=== PATIENT | female | born 1945 | race Two or more races ===

== ENCOUNTER 2020-05-24 18:03 | Inpatient (IN) | payer MEDICARE, MEDICAID ==
[~2020-05-24] VITALS: Ht 160 cm; Wt 95.6 kg
[2020-05-24] MEDS ORDERED: ACETAMINOPHEN 325 MG TAB PO ONE (18:30)
[2020-05-24] MEDS ORDERED: SODIUM CHLORIDE 0.9% 1,000 ML IV ONE (19:30)
[2020-05-24 21:37] LABS: Basophils # (auto) 0 10 ^3/uL (0-0.2); Eosinophils # (auto) 0 10 ^3/uL (0-0.8); Hemoglobin 10.8 g/dL (12.2-16.2); Lymphocytes # (auto) 1.4 10 ^3/uL (0.4-5.4); Red Cell Distribution Width 16.3 % (11.8-14.3)
[2020-05-24 21:39] LABS: Basophils % (auto) 0.2 % (0.0-2.0); Eosinophils % (auto) 0.2 % (0.0-7.0); Hematocrit 33.7 % (36.0-46.0); Lymphocytes % (auto) 9.8 % (10.0-50.0); Mean Corpuscular Hemoglobin 26.2 pg (28.0-32.0); Mean Corpuscular Hgb Conc. 32.1 g/dL (32.0-36.0); Mean Corpuscular Volume 81.8 fL (80.0-100.0); Monocytes # (auto) 0.6 10 ^3/uL (0-1.3); Monocytes % (auto) 4.6 % (0.0-12.0); Neutrophils # (auto) 11.8 10 ^3/uL (1.6-8.6); Neutrophils % (auto) 85.2 % (37.0-80.0); Platelet Count (auto) 175 10^3/uL (140-450); Red Blood Cells 4.12 10^6/uL (4.0-5.20); White Blood Cell 13.9 10^3/uL (4.4-10.8)
[2020-05-24 21:50] LABS: Alanine Aminotransferase 34 U/L (13-56); Albumin 2.8 g/dL (3.4-5.0); Anion Gap 9 (5-15); Aspartate Aminotransferase 28 U/L (15-37); BUN/Creatinine Ratio 17.3; Blood Urea Nitrogen 26 mg/dL (7-18); Calcium 7.8 mg/dL (8.5-10.1); Carbon Dioxide 21 mmol/L (21-32); Chloride 107 mmol/L (98-107); GFR African American 44 mL/min; GFR Non-African American 36 mL/min; Glucose 80 mg/dL (74-106); Potassium 3.6 mmol/L (3.5-5.1); Sodium 137 mmol/L (136-145)
[2020-05-24 21:55] LABS: Alkaline Phosphatase 89 U/L (45-117); Bilirubin, Total 0.4 mg/dL (0.2-1.0); Lactic Acid w/Reflex 4.4 mmol/L (0.4-2.0); Total Protein 6.9 g/dL (6.4-8.2)
[2020-05-24] MEDS: NOREPINEPHRINE 8 MG/250ML KIT 250 ML IV SCH (22:00)
[2020-05-24] MEDS ORDERED: NOREPINEPHRINE 8 MG/250ML KIT 250 ML IV ONE (22:02)
[2020-05-24] MEDS ORDERED: ETOMIDATE (2MG/ML) 20ML VIAL IV ONE ×2 (22:10→22:15)
[2020-05-24] MEDS ORDERED: SUCCINYLCHOLINE CHLORIDE 20 MG/ML 10ML VIAL IV ONE ×2 (22:10→22:15)
[2020-05-24 22:25] LABS: Urine Bacteria MOD /hpf (None Seen); Urine Blood 1+ /uL (Negative); Urine Specific Gravity 1.017 (1.001-1.035); Urine WBC 443 /hpf (0 - 5); Urine WBC Clumps PRESENT /hpf (None Seen)
[2020-05-24] MEDS ORDERED: ONDANSETRON HCL 4 MG/2 ML VIAL IV PRN (22:45)
[2020-05-24] MEDS ORDERED: DOCUSATE SOD 100 MG CAP PO PRN (22:45)
[2020-05-24] MEDS ORDERED: levoFLOXacin 750MG 150 ML IV ONE (23:00)
[2020-05-25] MEDS ORDERED: IPRATROPIUM BROM 0.5 MG/2.5ML INH SOL NEB PRN (02:15)
[2020-05-25] MEDS ORDERED: ALBUTEROL SULF 2.5 MG/0.5ML(0.5%) NEB SOLN NEB PRN (02:15)
[2020-05-25 03:06] VITALS: BP 144/60
[2020-05-25 05:33] LABS: Basophils # (auto) 0.1 10 ^3/uL (0-0.2); Basophils % (auto) 0.3 % (0.0-2.0); Eosinophils # (auto) 0 10 ^3/uL (0-0.8); Hematocrit 35.2 % (36.0-46.0); Lymphocytes # (auto) 2.3 10 ^3/uL (0.4-5.4); Lymphocytes % (auto) 10.6 % (10.0-50.0); Mean Corpuscular Hemoglobin 25.4 pg (28.0-32.0); Mean Corpuscular Hgb Conc. 31.1 g/dL (32.0-36.0); Mean Corpuscular Volume 81.5 fL (80.0-100.0); Monocytes # (auto) 0.9 10 ^3/uL (0-1.3); Neutrophils # (auto) 18.6 10 ^3/uL (1.6-8.6); Neutrophils % (auto) 85.1 % (37.0-80.0); Platelet Count (auto) 199 10^3/uL (140-450); Red Blood Cells 4.32 10^6/uL (4.0-5.20); Red Cell Distribution Width 16.7 % (11.8-14.3); White Blood Cell 21.8 10^3/uL (4.4-10.8)
[2020-05-25 05:58] LABS: Potassium 4.8 mmol/L (3.5-5.1)
[2020-05-25] MEDS ORDERED: ALBUTEROL SULF HFA 90MCG INH 200DOSE IN SCH (06:00)
[2020-05-25 06:04] LABS: Albumin 2.8 g/dL (3.4-5.0); BUN/Creatinine Ratio 21.7; Bilirubin, Total 0.5 mg/dL (0.2-1.0); Calcium 8.2 mg/dL (8.5-10.1); Magnesium 2.3 mg/dL (1.6-2.6); Total Protein 7.3 g/dL (6.4-8.2)
--- NOTE | 2020-05-25 07:00 | NUR ---
Respiratory note: PT ASSESSED FOR PRN TX. HR 72, RR 13, POX 97% ON RA, BS ARE CLEAR. NO SOB OR DISTRESS NOTED.
[2020-05-25] MEDS ORDERED: CHOLECALCIFEROL (VITD3) 1,000UNIT=25mCg TAB PO SCH (10:00)
[2020-05-25] MEDS ORDERED: DOXYCYCLINE 100 MG TAB/CAP PO SCH (10:00)
[2020-05-25] MEDS ORDERED: ENOXAPARIN SOD 40 MG/0.4 ML SYRINGE SC SCH (10:00)
[2020-05-25] MEDS ORDERED: ZINC SULFATE 220mg CAP or TAB PO SCH (10:00)
[2020-05-25] MEDS ORDERED: ASCORBIC ACID 1,000 MG TAB PO SCH (10:00)
[2020-05-25] MEDS ORDERED: VANCOMYCIN PER PHARMACY 0 MG IV SCH (10:15)
[2020-05-25] MEDS ORDERED: ASCORBIC ACID 1,000 MG TAB PO ONE (11:00)
[2020-05-25] MEDS ORDERED: CHOLECALCIFEROL (VITD3) 1,000UNIT=25mCg TAB PO ONE (11:00)
[2020-05-25] MEDS ORDERED: DOXYCYCLINE 100 MG TAB/CAP PO ONE (11:00)
[2020-05-25] MEDS ORDERED: ENOXAPARIN SOD 40 MG/0.4 ML SYRINGE SC ONE (11:00)
[2020-05-25] MEDS ORDERED: ZINC SULFATE 220mg CAP or TAB PO ONE (11:00)
[2020-05-25] MEDS: SODIUM CHLORIDE 0.9% 1,000 ML IV SCH ×2 (11:05→18:46)
[2020-05-25] MEDS: PIPERACILLIN-TAZOB 3.375GM 100 ML IV SCH ×2 (12:10→18:22)
[2020-05-25] MEDS ORDERED: VANCOMYCIN 1GM/250ML 250 ML IV SCH (15:00)
[2020-05-25] MEDS ORDERED: DEXTROSE (50%) 50ML SYRG IV PRN (15:15)
[2020-05-25] MEDS: InsuLIN REG 1unit/0.01ml Soln (100units/ml) SC SCH ×2 (17:10→22:04)
[2020-05-25] MEDS: ACCU-CHEK COMFORT CURVE STRIP VI SCH ×2 (17:13→22:05)
[2020-05-25 17:22] LABS: Lactic Acid w/Reflex 2.3 mmol/L (0.4-2.0)
[2020-05-25] MEDS: ACETAMINOPHEN 500 MG TAB PO PRN (20:52)
[2020-05-25] MEDS ORDERED: DULO20CA PO (21:49)
[2020-05-25] MEDS ORDERED: GABA300C10 PO (21:49)
[2020-05-25] MEDS ORDERED: COLC0.6T56 GT (21:49)
[2020-05-25] MEDS ORDERED: LEV100T GT (21:49)
[2020-05-25] MEDS: NOREPINEPHRINE 8 MG/250ML KIT 250 ML IV SCH (22:00)
[2020-05-25] MEDS: DOXYCYCLINE 100 MG TAB/CAP PO SCH (22:05)
--- NOTE | 2020-05-25 23:51 | NUR ---
Respiratory note: PT SEEN AND ASSESSED FOR PRN MED NEB TX AT 2351. TREATMENT IS NOT INDICATED AT THIS TIME. PT DENIES HAVING ANY SOB. HR 72 RR 18 SP02 98% ON 2L NASAL CANNULA.
[2020-05-26] VITALS (7 sets, daily range): BP systolic 101–160; BP diastolic 49–79
[2020-05-26] MEDS: PIPERACILLIN-TAZOB 3.375GM 100 ML IV SCH ×4 (00:27→18:39)
--- NOTE | 2020-05-26 01:20 | NUR ---
Telemetry admit from [facility] admitted to Telemetry unit after SBAR received. Patient oriented to [facility], RN primary RN, unit, room, bed, and unit policies regarding patient care and visiting hours. Patient now on continuous telemetry monitoring, tele box # [id number] and telemetry reading on arrival to unit is [id number]. Patient placed on bedside oxygen, weighed by bedscale and encouraged to call if they need something. All questions and concerns addressed, patient verbalized understanding.
--- NOTE | 2020-05-26 01:23 | NUR ---
Home Medications Patient does not know her home medication names or doses, patient said she will tell family member to bring medications from home.
[2020-05-26] MEDS: HYDROcodone-ACET 5/325MG TAB PO PRN (01:57)
--- NOTE | 2020-05-26 01:57 | NUR ---
Pain Patient c/o pain 6/10 to left shoulder and lower back pain, pain medication administered.
[2020-05-26] MEDS: SODIUM CHLORIDE 0.9% 1,000 ML IV SCH ×3 (02:45→18:43)
--- NOTE | 2020-05-26 02:57 | NUR ---
RE Pain Patient resting with eyes closed, no sign of pain or distress, will continue to monitor.
[2020-05-26] MEDS: ACCU-CHEK COMFORT CURVE STRIP VI SCH ×4 (06:11→22:02)
[2020-05-26] MEDS: InsuLIN REG 1unit/0.01ml Soln (100units/ml) SC SCH ×4 (06:13→22:03)
--- NOTE | 2020-05-26 07:18 | NUR ---
Closing Note Patient status has not changed, endorsed care to dayshift nurse.
--- NOTE | 2020-05-26 07:20 | NUR ---
Respiratory note: PT ASSESSED FOR MED NEB. PT ON 2 LPM SP02 96%. PT IN NO DISTRESS AT THIS TIME.. PT AWARE TO HAVE RT PAGED IF BECOMES SOB.
[2020-05-26 07:24] LABS: Basophils # (auto) 0.1 10 ^3/uL (0-0.2); Hemoglobin 11.4 g/dL (12.2-16.2); Mean Corpuscular Hemoglobin 25.6 pg (28.0-32.0); Mean Corpuscular Hgb Conc. 31.5 g/dL (32.0-36.0); Monocytes # (auto) 0.5 10 ^3/uL (0-1.3); Red Blood Cells 4.44 10^6/uL (4.0-5.20)
[2020-05-26 07:27] LABS: Basophils % (auto) 0.6 % (0.0-2.0); Eosinophils # (auto) 0.4 10 ^3/uL (0-0.8); Eosinophils % (auto) 2.9 % (0.0-7.0); Hematocrit 36.2 % (36.0-46.0); Lymphocytes # (auto) 2.3 10 ^3/uL (0.4-5.4); Lymphocytes % (auto) 17.8 % (10.0-50.0); Mean Corpuscular Volume 81.5 fL (80.0-100.0); Monocytes % (auto) 4.2 % (0.0-12.0); Neutrophils # (auto) 9.5 10 ^3/uL (1.6-8.6); Neutrophils % (auto) 74.5 % (37.0-80.0); Platelet Count (auto) 201 10^3/uL (140-450); Red Cell Distribution Width 17.2 % (11.8-14.3); White Blood Cell 12.7 10^3/uL (4.4-10.8)
[2020-05-26 07:50] LABS: Potassium 4.6 mmol/L (3.5-5.1)
[2020-05-26 07:58] LABS: BUN/Creatinine Ratio 20.5; Calcium 8.4 mg/dL (8.5-10.1)
[2020-05-26] MEDS ORDERED: ZINC SULFATE 220mg CAP or TAB PO SCH (10:00)
[2020-05-26] MEDS ORDERED: ASCORBIC ACID 1,000 MG TAB PO SCH (10:00)
[2020-05-26] MEDS: CHOLECALCIFEROL (VITD3) 1,000UNIT=25mCg TAB PO SCH (10:26)
[2020-05-26] MEDS: DOXYCYCLINE 100 MG TAB/CAP PO SCH ×2 (10:26→22:02)
[2020-05-26] MEDS: ENOXAPARIN SOD 40 MG/0.4 ML SYRINGE SC SCH (10:27)
[2020-05-26] MEDS ORDERED: FLUT100M IN (10:56)
[2020-05-26] MEDS ORDERED: HYDROcodone-ACET 5/325MG TAB PO PRN (15:30)
[2020-05-26] MEDS: GABAPENTIN 300 MG CAP PO SCH ×2 (16:30→22:02)
[2020-05-26] MEDS: ACETAMINOPHEN 500 MG TAB PO PRN (22:02)
--- NOTE | 2020-05-26 22:02 | NUR ---
Pain patient c/o pain 3/10 to lower back, pain medication administered.
[2020-05-26] MEDS: INSULIN 70/30 1unit/0.01ml Susp (100units/ml) SC SCH (22:03)
--- NOTE | 2020-05-26 23:02 | NUR ---
Re Pain Patient resting with eyes closed no sign of pain or distressed. will continue to monitor.
[2020-05-27] MEDS: PIPERACILLIN-TAZOB 3.375GM 100 ML IV SCH ×3 (00:08→14:39)
[2020-05-27] MEDS: SODIUM CHLORIDE 0.9% 1,000 ML IV SCH ×2 (02:37→10:45)
[2020-05-27 05:00] VITALS: BP 134/64
[2020-05-27] MEDS: GABAPENTIN 300 MG CAP PO SCH ×2 (06:01→14:40)
[2020-05-27] MEDS: InsuLIN REG 1unit/0.01ml Soln (100units/ml) SC SCH ×2 (06:03→12:05)
[2020-05-27] MEDS: ACCU-CHEK COMFORT CURVE STRIP VI SCH ×2 (06:03→12:05)
[2020-05-27] MEDS ORDERED: LEVOTHYROXINE SODIUM 100 MCG TAB PO SCH (07:00)
[2020-05-27 07:13] LABS: Basophils # (auto) 0.1 10 ^3/uL (0-0.2); Eosinophils # (auto) 0.4 10 ^3/uL (0-0.8); Eosinophils % (auto) 5.1 % (0.0-7.0); Hematocrit 34.2 % (36.0-46.0); Lymphocytes # (auto) 2.3 10 ^3/uL (0.4-5.4); Lymphocytes % (auto) 26.8 % (10.0-50.0); Mean Corpuscular Hemoglobin 25.7 pg (28.0-32.0); Mean Corpuscular Hgb Conc. 32.1 g/dL (32.0-36.0); Mean Corpuscular Volume 80.1 fL (80.0-100.0); Monocytes # (auto) 0.6 10 ^3/uL (0-1.3); Monocytes % (auto) 7.4 % (0.0-12.0); Neutrophils # (auto) 5.2 10 ^3/uL (1.6-8.6); Neutrophils % (auto) 59.7 % (37.0-80.0); Nucleated Red Blood Cells % 0.2 %; Platelet Count (auto) 189 10^3/uL (140-450); Red Blood Cells 4.27 10^6/uL (4.0-5.20); Red Cell Distribution Width 16.7 % (11.8-14.3); White Blood Cell 8.7 10^3/uL (4.4-10.8)
--- NOTE | 2020-05-27 07:30 | NUR ---
Closing Note Patient status has not changed, endorsed care to dayshift nurse.
[2020-05-27 07:39] LABS: BUN/Creatinine Ratio 18.1; Calcium 8.5 mg/dL (8.5-10.1); Potassium 4.6 mmol/L (3.5-5.1)
--- NOTE | 2020-05-27 07:40 | NUR ---
Opening Note Received report from plant operator/shift supervisor RN. Patient is awake, alert and oriented x4. Patient is on room air, respirations even and unlabored. Patient complains of generalized body pain 8/10 and is requesting pain medications. Will medicate per orders. Patient has Kirk catheter in place, patent and draining. Reviewed plan of care with patient, patient verbalized understanding. Bed in low and locked position, call light within reach. Will continue to monitor Q1 hour and PRN.
[2020-05-27 09:00] VITALS: BP 133/66
[2020-05-27] MEDS: CHOLECALCIFEROL (VITD3) 1,000UNIT=25mCg TAB PO SCH (09:00)
[2020-05-27] MEDS: DOXYCYCLINE 100 MG TAB/CAP PO SCH (09:01)
[2020-05-27] MEDS: HYDROcodone-ACET 5/325MG TAB PO PRN (09:01)
[2020-05-27] MEDS: ENOXAPARIN SOD 40 MG/0.4 ML SYRINGE SC SCH (09:10)
--- NOTE | 2020-05-27 09:43 | NUR ---
Dr Burns at bedside Discussing plan of care with patient and this RN. New orders received. Will continue to monitor Q1 hour and PRN.
[2020-05-27] MEDS ORDERED: DULoxetine HCL 30 MG CAP PO SCH (10:00)
[2020-05-27] MEDS ORDERED: COLCHICINE 0.6 MG CAP PO SCH (10:00)
[2020-05-27] MEDS ORDERED: CIPR-173 PO (10:26)
[2020-05-27] MEDS ORDERED: COLC0.6T56 PO (10:26)
[2020-05-27] MEDS ORDERED: LEV100T PO (10:26)
[2020-05-27] MEDS: INSULIN 70/30 1unit/0.01ml Susp (100units/ml) SC SCH (12:04)
--- NOTE | 2020-05-27 12:10 | NUR ---
Kirk catheter removed instructed this RN to remove Kirk catheter. Kirk removed with clean technique following deflation of balloon. Patient tolerated well with no complaints of pain. Patient instructed to call for assistance. Will continue to monitor Q1 hour and PRN.
[2020-05-27 13:00] VITALS: BP 132/74
--- NOTE | 2020-05-27 16:30 | NUR ---
Discharge Discharge instructions given as ordered. Encourage to follow up with PMD as instructed. All questions and concerns addressed. Patient verbalized understanding. Medication reconciliation form completed and copy given to patient. to patient. IV removed with catheter intact, pressure dressing applied. Telemetry unit returned to ICU. Prescriptions filled at [facility]. Patient taken to vehicle via wheelchair with all personal belongings, accompanied by staff members, No signs or symptoms of distress noted at this time.
== END 2020-05-27 16:30 | disposition home or self-care (01) | DRG 871 ==
LOC: ER 18:03 → EDBD 18:03 → TELE 18:04 → TELE-WESTW 05-25 23:54
PROVIDERS: ADMIT Hospitalist; ATTEND Internal Medicine
DX: A41.50 Gram-negative sepsis, unspecified (principal); R65.21 Severe sepsis with septic shock; E87.1 Hypo-osmolality and hyponatremia; N30.00 Acute cystitis without hematuria; N17.9 Acute kidney failure, unspecified; I95.89 Other hypotension; E86.0 Dehydration; E66.9 Obesity, unspecified; E11.65 Type 2 diabetes mellitus with hyperglycemia; J45.909 Unspecified asthma, uncomplicated; I10 Essential (primary) hypertension; I48.91 Unspecified atrial fibrillation; Z20.828 Contact with and (suspected) exposure to other viral communicable diseases; Z68.37 Body mass index [BMI] 37.0-37.9, adult; R41.82 Altered mental status, unspecified
CPT/HCPCS: 36415; 36600; 70450; 71045; 80048; 80053; 80320; 81001; 82805; 82962; 83036; 83605; 83735; 84443; 84484; 85025; 87040; 87070; 87077; 87186; 87804; 87880; 93005; 96365; G0378; J0330; J1815; J1956; J2543

== ENCOUNTER 2020-11-28 08:25 | Inpatient (IN) | payer MEDICARE, MEDICAID ==
[~2020-11-28] VITALS: Ht 165.1 cm; Wt 93.7 kg
[~2020-11-28 08:25] MED LIST: CIPR-173 PO; COLC0.6T56 PO; DULO20CA PO; FLUT100M IN; GABA300C10 PO; LEV100T PO
[2020-11-28] MEDS ORDERED: DexAMETHasone SOD PHOS 10MG/1ML VIAL INJ IV ONE (08:45)
[2020-11-28] MEDS ORDERED: cefTRIAXone 1GM/50ML D5W 50 ML IV ONE (08:45)
[2020-11-28] MEDS ORDERED: AZITHROMYCIN 500MG/ 250ML 250 ML IV ONE (08:45)
[2020-11-28] MEDS ORDERED: BUDESONIDE (INHALATION) 0.5 MG/2 ML NEB NEB ONE (09:00)
[2020-11-28 10:22] LABS: Basophils # (auto) 0 10 ^3/uL (0-0.2); Basophils % (auto) 0.6 % (0.0-2.0); Eosinophils # (auto) 0 10 ^3/uL (0-0.8); Eosinophils % (auto) 0.5 % (0.0-7.0); Hematocrit 38.6 % (36.0-46.0); Hemoglobin 12.5 g/dL (12.2-16.2); Lymphocytes # (auto) 2.1 10 ^3/uL (0.4-5.4); Lymphocytes % (auto) 24.9 % (10.0-50.0); Mean Corpuscular Hemoglobin 27.5 pg (28.0-32.0); Mean Corpuscular Hgb Conc. 32.4 g/dL (32.0-36.0); Mean Corpuscular Volume 84.8 fL (80.0-100.0); Monocytes # (auto) 0.4 10 ^3/uL (0-1.3); Monocytes % (auto) 4.4 % (0.0-12.0); Neutrophils # (auto) 5.8 10 ^3/uL (1.6-8.6); Neutrophils % (auto) 69.6 % (37.0-80.0); Red Blood Cells 4.55 10^6/uL (4.0-5.20); Red Cell Distribution Width 15.9 % (11.8-14.3); White Blood Cell 8.4 10^3/uL (4.4-10.8)
[2020-11-28 10:42] LABS: Chloride 104 mmol/L (98-107); Potassium 4.2 mmol/L (3.5-5.1); Sodium 136 mmol/L (136-145)
[2020-11-28 10:45] LABS: INR 1.07 (0.9-1.15); Partial Thromboplastin Time 32.2 sec (23.0-31.2)
[2020-11-28 10:55] LABS: Alanine Aminotransferase 46 U/L (13-56); Alkaline Phosphatase 61 U/L (45-117); Anion Gap 11 (5-15); Aspartate Aminotransferase 69 U/L (15-37); BUN/Creatinine Ratio 21.5; Bilirubin, Total 0.3 mg/dL (0.2-1.0); Blood Urea Nitrogen 23 mg/dL (7-18); CRP High Sensitivity 9.46 mg/dL (< 0.3); Calcium 8.4 mg/dL (8.5-10.1); Carbon Dioxide 21 mmol/L (21-32); GFR African American 65 mL/min; GFR Non-African American 53 mL/min; Glucose 205 mg/dL (74-106); Lactate Dehydrogenase 295 U/L (84-246)
[2020-11-28 13:18] LABS: Urine Bacteria FEW /hpf (None Seen); Urine Blood Negative /uL (Negative); Urine Specific Gravity 1.021 (1.001-1.035); Urine WBC 1 /hpf (0 - 5)
[2020-11-28] MEDS ORDERED: NITROGLYCERIN 0.4 MG SL TAB SL PRN (15:00)
[2020-11-28] MEDS ORDERED: DEXTROSE (50%) 50ML SYRG IV PRN (15:00)
[2020-11-28] MEDS ORDERED: REMDESIVIR PER PHARMACY 0 ML IV SCH (15:00)
[2020-11-28] MEDS ORDERED: HYDROcodone-ACET 5/325MG TAB PO PRN (15:00)
[2020-11-28] MEDS ORDERED: MORPHINE SULFATE INJECTION 2 MG/ML SYRG IV PRN ×2 (15:00)
[2020-11-28] MEDS ORDERED: ONDANSETRON HCL 4 MG/2 ML VIAL IV PRN (15:00)
[2020-11-28] MEDS ORDERED: ACETAMINOPHEN 500 MG TAB PO PRN (15:00)
[2020-11-28] MEDS ORDERED: REMDESIVIR 200 MG in NS 210ml LOADING DOSE ADULT IV ONE (18:00)
[2020-11-28] MEDS: ACCU-CHEK COMFORT CURVE STRIP VI SCH ×2 (18:29→22:25)
[2020-11-28] MEDS: InsuLIN REG 1unit/0.01ml Soln (100units/ml) SC SCH ×2 (18:33→22:29)
[2020-11-28] MEDS: BUDESONIDE (INHALATION) 180 MCG IH IN SCH (22:00)
[2020-11-28] MEDS ORDERED: ENOXAPARIN SOD 40 MG/0.4 ML SYRINGE SC SCH (22:00)
[2020-11-28] MEDS: OSELTAMIVIR 75 MG CAP PO SCH (22:32)
[2020-11-28] MEDS: APIXABAN 5 MG TAB PO SCH (22:32)
[2020-11-28] MEDS: GABAPENTIN 300 MG CAP PO SCH (22:32)
[2020-11-28] MEDS: INSULIN LANTUS (GLARGINE) 1 /0.01ml (100units/ml) SC SCH (22:33)
[2020-11-29] MEDS: INSULIN LANTUS (GLARGINE) 1 /0.01ml (100units/ml) SC SCH ×2 (00:07→06:40)
[2020-11-29 04:15] VITALS: BP 135/81
[2020-11-29] MEDS ORDERED: DEXTROSE (50%) 50ML SYRG IV PRN (04:30)
[2020-11-29 04:32] VITALS: BP 134/77
[2020-11-29 05:16] VITALS: BP 136/64
[2020-11-29] MEDS: ACCU-CHEK COMFORT CURVE STRIP VI SCH ×3 (06:12→17:59)
[2020-11-29] MEDS: InsuLIN REG 1unit/0.01ml Soln (100units/ml) SC SCH ×3 (06:15→18:00)
[2020-11-29] MEDS: GABAPENTIN 300 MG CAP PO SCH ×3 (06:22→21:53)
[2020-11-29 06:27] LABS: Basophils # (auto) 0 10 ^3/uL (0-0.2); Basophils % (auto) 0.4 % (0.0-2.0); Eosinophils # (auto) 0 10 ^3/uL (0-0.8); Hematocrit 35.4 % (36.0-46.0); Hemoglobin 11.6 g/dL (12.2-16.2); Lymphocytes # (auto) 0.9 10 ^3/uL (0.4-5.4); Lymphocytes % (auto) 19.3 % (10.0-50.0); Mean Corpuscular Hemoglobin 27.5 pg (28.0-32.0); Mean Corpuscular Hgb Conc. 32.6 g/dL (32.0-36.0); Mean Corpuscular Volume 84.4 fL (80.0-100.0); Monocytes # (auto) 0.4 10 ^3/uL (0-1.3); Monocytes % (auto) 8.7 % (0.0-12.0); Neutrophils # (auto) 3.2 10 ^3/uL (1.6-8.6); Neutrophils % (auto) 71.6 % (37.0-80.0); Nucleated Red Blood Cells % 0.1 %; Red Cell Distribution Width 16.1 % (11.8-14.3); White Blood Cell 4.4 10^3/uL (4.4-10.8)
[2020-11-29] MEDS: LEVOTHYROXINE SODIUM 100 MCG TAB PO SCH (06:38)
[2020-11-29 06:51] LABS: Potassium 4.9 mmol/L (3.5-5.1)
[2020-11-29 06:59] LABS: Albumin 2.8 g/dL (3.4-5.0); BUN/Creatinine Ratio 32.7; Bilirubin, Total 0.2 mg/dL (0.2-1.0); Calcium 8.4 mg/dL (8.5-10.1); Total Protein 7.7 g/dL (6.4-8.2)
[2020-11-29] MEDS: ALBUTEROL SULF HFA 90MCG INH 200DOSE IN PRN ×2 (07:38→19:47)
[2020-11-29] MEDS: BUDESONIDE (INHALATION) 180 MCG IH IN SCH ×2 (07:38→19:19)
[2020-11-29] MEDS: APIXABAN 5 MG TAB PO SCH ×2 (09:01→21:53)
[2020-11-29] MEDS: cefTRIAXone 1GM/50ML D5W 50 ML IV SCH (09:01)
[2020-11-29] MEDS: ZINC SULFATE 220mg CAP or TAB PO SCH (09:01)
[2020-11-29] MEDS: ASCORBIC ACID 1,000 MG TAB PO SCH (09:02)
[2020-11-29] MEDS: CHOLECALCIFEROL (VITD3) 2,000 UNIT CAP/TAB PO SCH (09:02)
[2020-11-29] MEDS: FAMOTIDINE 20 MG TAB PO SCH (09:02)
[2020-11-29] MEDS: OSELTAMIVIR 75 MG CAP PO SCH ×2 (09:02→21:53)
[2020-11-29] MEDS: Duloxetine Hcl (Cymbalta) 20MG CAPSULE PO SCH (09:02)
[2020-11-29] MEDS: AZITHROMYCIN 500MG/ 250ML 250 ML IV SCH (10:23)
[2020-11-29] MEDS: REMDESIVIR 100mg 100 MG in SODIUM CHL 0.9% 230 ML IV SCH (16:12)
[2020-11-30] VITALS: BP 149/89
[2020-11-30] MEDS: ACCU-CHEK COMFORT CURVE STRIP VI SCH ×4 (00:11→17:35)
[2020-11-30] MEDS: InsuLIN REG 1unit/0.01ml Soln (100units/ml) SC SCH ×4 (00:14→17:36)
[2020-11-30 00:44] VITALS: BP 149/89
[2020-11-30 06:16] LABS: Potassium 4.8 mmol/L (3.5-5.1)
[2020-11-30] MEDS: GABAPENTIN 300 MG CAP PO SCH ×3 (06:20→22:07)
[2020-11-30 06:23] LABS: Albumin 2.9 g/dL (3.4-5.0); BUN/Creatinine Ratio 32.4; Bilirubin, Total 0.2 mg/dL (0.2-1.0); Calcium 8.9 mg/dL (8.5-10.1); Total Protein 7.4 g/dL (6.4-8.2)
[2020-11-30] MEDS: LEVOTHYROXINE SODIUM 100 MCG TAB PO SCH (06:25)
[2020-11-30] MEDS: INSULIN LANTUS (GLARGINE) 1 /0.01ml (100units/ml) SC SCH ×2 (06:31→22:02)
[2020-11-30 08:00] VITALS: BP 157/74
[2020-11-30] MEDS: cefTRIAXone 1GM/50ML D5W 50 ML IV SCH (08:54)
[2020-11-30] MEDS: Duloxetine Hcl (Cymbalta) 20MG CAPSULE PO SCH (10:00)
[2020-11-30] MEDS: AZITHROMYCIN 500MG/ 250ML 250 ML IV SCH (10:00)
[2020-11-30] MEDS: ZINC SULFATE 220mg CAP or TAB PO SCH (11:08)
[2020-11-30] MEDS: FAMOTIDINE 20 MG TAB PO SCH (11:08)
[2020-11-30] MEDS: APIXABAN 5 MG TAB PO SCH ×2 (11:08→22:08)
[2020-11-30] MEDS: OSELTAMIVIR 75 MG CAP PO SCH ×2 (11:09→22:07)
[2020-11-30] MEDS: ASCORBIC ACID 1,000 MG TAB PO SCH (11:09)
[2020-11-30] MEDS: CHOLECALCIFEROL (VITD3) 2,000 UNIT CAP/TAB PO SCH (11:09)
[2020-11-30] MEDS: BUDESONIDE (INHALATION) 180 MCG IH IN SCH ×2 (12:10→18:34)
[2020-11-30 16:00] VITALS: BP 129/71
[2020-11-30] MEDS: REMDESIVIR 100mg 100 MG in SODIUM CHL 0.9% 230 ML IV SCH (16:12)
[2020-11-30] MEDS: ALBUTEROL SULF HFA 90MCG INH 200DOSE IN PRN (18:34)
[2020-12-01] VITALS: BP 118/74
[2020-12-01] MEDS: ACCU-CHEK COMFORT CURVE STRIP VI SCH ×5 (00:10→23:32)
[2020-12-01] MEDS: GABAPENTIN 300 MG CAP PO SCH ×3 (06:05→21:05)
[2020-12-01 06:22] LABS: Potassium 4.2 mmol/L (3.5-5.1)
[2020-12-01 06:30] LABS: Albumin 2.6 g/dL (3.4-5.0); BUN/Creatinine Ratio 31.6; Bilirubin, Total 0.2 mg/dL (0.2-1.0); Calcium 8.8 mg/dL (8.5-10.1); Total Protein 6.9 g/dL (6.4-8.2)
[2020-12-01] MEDS: LEVOTHYROXINE SODIUM 100 MCG TAB PO SCH (06:30)
[2020-12-01] MEDS: InsuLIN REG 1unit/0.01ml Soln (100units/ml) SC SCH ×5 (06:30→23:32)
[2020-12-01] MEDS: INSULIN LANTUS (GLARGINE) 1 /0.01ml (100units/ml) SC SCH ×2 (06:35→21:10)
[2020-12-01] MEDS: BUDESONIDE (INHALATION) 180 MCG IH IN SCH ×2 (07:03→18:48)
[2020-12-01] MEDS: ALBUTEROL SULF HFA 90MCG INH 200DOSE IN PRN ×2 (07:04→18:48)
[2020-12-01 08:00] VITALS: BP 137/61
[2020-12-01] MEDS: ZINC SULFATE 220mg CAP or TAB PO SCH (09:40)
[2020-12-01] MEDS: Duloxetine Hcl (Cymbalta) 20MG CAPSULE PO SCH (09:40)
[2020-12-01] MEDS: cefTRIAXone 1GM/50ML D5W 50 ML IV SCH (09:40)
[2020-12-01] MEDS: AZITHROMYCIN 500MG/ 250ML 250 ML IV SCH (09:40)
[2020-12-01] MEDS: ASCORBIC ACID 1,000 MG TAB PO SCH (09:41)
[2020-12-01] MEDS: FAMOTIDINE 20 MG TAB PO SCH (09:41)
[2020-12-01] MEDS: CHOLECALCIFEROL (VITD3) 2,000 UNIT CAP/TAB PO SCH (09:41)
[2020-12-01] MEDS: APIXABAN 5 MG TAB PO SCH ×2 (09:41→21:05)
[2020-12-01] MEDS: OSELTAMIVIR 75 MG CAP PO SCH ×2 (09:41→21:05)
[2020-12-01] MEDS: REMDESIVIR 100mg 100 MG in SODIUM CHL 0.9% 230 ML IV SCH (15:35)
[2020-12-01 16:00] VITALS: BP 140/77
[2020-12-02] VITALS: BP 131/75
[2020-12-02] MEDS: LEVOTHYROXINE SODIUM 100 MCG TAB PO SCH (05:04)
[2020-12-02] MEDS: GABAPENTIN 300 MG CAP PO SCH ×3 (05:04→21:26)
[2020-12-02] MEDS: InsuLIN REG 1unit/0.01ml Soln (100units/ml) SC SCH ×4 (05:27→23:38)
[2020-12-02] MEDS: ACCU-CHEK COMFORT CURVE STRIP VI SCH ×4 (05:28→23:36)
[2020-12-02] MEDS: INSULIN LANTUS (GLARGINE) 1 /0.01ml (100units/ml) SC SCH ×2 (06:34→21:28)
[2020-12-02] MEDS: BUDESONIDE (INHALATION) 180 MCG IH IN SCH ×2 (06:40→22:29)
[2020-12-02] MEDS: ALBUTEROL SULF HFA 90MCG INH 200DOSE IN PRN ×2 (06:40→22:29)
[2020-12-02 06:42] LABS: Albumin 2.7 g/dL (3.4-5.0); BUN/Creatinine Ratio 27.7; Bilirubin, Total 0.3 mg/dL (0.2-1.0); Calcium 8.9 mg/dL (8.5-10.1); Total Protein 6.8 g/dL (6.4-8.2)
[2020-12-02 08:00] VITALS: BP 135/76
[2020-12-02] MEDS: cefTRIAXone 1GM/50ML D5W 50 ML IV SCH (08:50)
[2020-12-02] MEDS: ZINC SULFATE 220mg CAP or TAB PO SCH (09:36)
[2020-12-02] MEDS: APIXABAN 5 MG TAB PO SCH ×2 (09:36→21:25)
[2020-12-02] MEDS: ASCORBIC ACID 1,000 MG TAB PO SCH (09:37)
[2020-12-02] MEDS: FAMOTIDINE 20 MG TAB PO SCH (09:37)
[2020-12-02] MEDS: CHOLECALCIFEROL (VITD3) 2,000 UNIT CAP/TAB PO SCH (09:37)
[2020-12-02] MEDS: OSELTAMIVIR 75 MG CAP PO SCH ×2 (09:37→21:26)
[2020-12-02] MEDS: AZITHROMYCIN 250 MG TAB PO SCH (09:38)
[2020-12-02] MEDS: Duloxetine Hcl (Cymbalta) 20MG CAPSULE PO SCH (10:00)
[2020-12-02] MEDS: REMDESIVIR 100mg 100 MG in SODIUM CHL 0.9% 230 ML IV SCH (15:00)
[2020-12-02 16:00] VITALS: BP 124/58
[2020-12-03] VITALS: BP 115/64
[2020-12-03] MEDS: GABAPENTIN 300 MG CAP PO SCH ×2 (06:06→14:39)
[2020-12-03] MEDS: LEVOTHYROXINE SODIUM 100 MCG TAB PO SCH (06:07)
[2020-12-03] MEDS: ACCU-CHEK COMFORT CURVE STRIP VI SCH ×2 (06:07→12:29)
[2020-12-03] MEDS: InsuLIN REG 1unit/0.01ml Soln (100units/ml) SC SCH ×2 (06:08→12:35)
[2020-12-03] MEDS: INSULIN LANTUS (GLARGINE) 1 /0.01ml (100units/ml) SC SCH (06:09)
[2020-12-03] MEDS: ALBUTEROL SULF HFA 90MCG INH 200DOSE IN PRN (06:21)
[2020-12-03] MEDS: BUDESONIDE (INHALATION) 180 MCG IH IN SCH (06:21)
[2020-12-03 08:00] VITALS: BP 126/69
[2020-12-03] MEDS: cefTRIAXone 1GM/50ML D5W 50 ML IV SCH (08:40)
[2020-12-03] MEDS: ZINC SULFATE 220mg CAP or TAB PO SCH (09:55)
[2020-12-03] MEDS: OSELTAMIVIR 75 MG CAP PO SCH (09:55)
[2020-12-03] MEDS: APIXABAN 5 MG TAB PO SCH (09:55)
[2020-12-03] MEDS: AZITHROMYCIN 250 MG TAB PO SCH (09:56)
[2020-12-03] MEDS: ASCORBIC ACID 1,000 MG TAB PO SCH (09:56)
[2020-12-03] MEDS: CHOLECALCIFEROL (VITD3) 2,000 UNIT CAP/TAB PO SCH (09:56)
[2020-12-03] MEDS: Duloxetine Hcl (Cymbalta) 20MG CAPSULE PO SCH (10:00)
[2020-12-03] MEDS: FAMOTIDINE 20 MG TAB PO SCH (10:00)
[2020-12-03 16:00] VITALS: BP 122/56
== END 2020-12-03 17:30 | disposition home or self-care (01) | DRG 871 ==
LOC: ER 08:25 → EDBD 08:25 → TELE 08:26 → TELE-EAST 11-29 23:15
PROVIDERS: ADMIT Nurse Practitioner Acute Care; ATTEND Internal Medicine
PROC: XW033E5 Introduction of Remdesivir Anti-infective into Peripheral Vein, Percutaneous Approach, New Technology Group 5 (ICD-10-PCS; principal; 2020-11-28)
PROC: XW13325 Transfusion of Convalescent Plasma (Nonautologous) into Peripheral Vein, Percutaneous Approach, New Technology Group 5 (ICD-10-PCS; 2020-11-29)
DX: A41.89 Other specified sepsis (principal); J12.82 Pneumonia due to coronavirus disease 2019; J96.01 Acute respiratory failure with hypoxia; J10.08 Influenza due to other identified influenza virus with other specified pneumonia; U07.1 COVID-19; D68.59 Other primary thrombophilia; I48.0 Paroxysmal atrial fibrillation; D89.839 Cytokine release syndrome, grade unspecified; E66.9 Obesity, unspecified; E88.09 Other disorders of plasma-protein metabolism, not elsewhere classified; E03.9 Hypothyroidism, unspecified; E11.22 Type 2 diabetes mellitus with diabetic chronic kidney disease; F32.9 Major depressive disorder, single episode, unspecified; I12.9 Hypertensive chronic kidney disease with stage 1 through stage 4 chronic kidney disease, or unspecified chronic kidney disease; J45.909 Unspecified asthma, uncomplicated; M10.9 Gout, unspecified; Z79.4 Long term (current) use of insulin; Z79.51 Long term (current) use of inhaled steroids; Z79.82 Long term (current) use of aspirin; Z79.899 Other long term (current) drug therapy; Z80.0 Family history of malignant neoplasm of digestive organs; Z83.3 Family history of diabetes mellitus; Z68.34 Body mass index [BMI] 34.0-34.9, adult; N18.31 Chronic kidney disease, stage 3a
CPT/HCPCS: 36415; 51702; 71045; 80053; 81001; 82306; 82728; 82962; 83036; 83615; 83880; 84484; 85025; 85379; 85610; 85730; 86141; 86850; 86900; 86901; 87040; 87426; 87804; 93005; 94640; 96365; 96366; 96367; 96375; 99291; G0378; J0696; J1100; J1815